=== PATIENT | male | born 1955 | race Caucasian/White ===

== ENCOUNTER 2018-04-15 17:33 | Emergency (ER) | payer OTHER, SELFPAY ==
[2018-04-15] VITALS (12 sets, daily range): BP systolic 117–163; BP diastolic 76–96; PULSE 44–111; RESP 12–27; TEMP 36.2; O2SAT 98–100; BMI 27.3
--- NOTE | 2018-04-15 17:47 | DI.RAD.S_ITS ---
PROCEDURE: XR CHEST 1V INDICATIONS: palpitations TECHNIQUE: One view of the chest was acquired. COMPARISON: None. FINDINGS: Surgical changes and devices: None. Lungs and pleura: No pleural effusions or pneumothorax. Lungs are clear. Mediastinum: Mediastinal contours appear normal. Heart size is normal. Bones and chest wall: No suspicious bony lesions. Overlying soft tissues appear unremarkable. IMPRESSION: No acute cardiopulmonary findings. Dictated by: Kenia Prieto M.D. on 04/15/2018 at 18:44 Approved by: Kenia Prieto M.D. on 04/15/2018 at 18:44
[2018-04-15 17:57] LABS: Prothrombin Time 11.1 SECONDS (10.1-12.7)
[2018-04-15 18:00] LABS: PTT Partial Thromboplastin Tim 28 SECONDS (26.4-36.2)
[2018-04-15 18:02] LABS: Alanine Aminotransferase 33 IU/L (21-72); Albumin 5.2 g/dL (3.5-5.0); Albumin Globulin Ratio 1.6 (1.0-2.8); Alkaline Phosphatase 45 U/L (38-126); Aspartate Aminotransferase 50 IU/L (17-59); Bilirubin Total 0.7 mg/dL (0.2-1.3); Calcium 10.3 mg/dL (8.4-10.2); Estimated Glomerular Filt Rate > 60.0 mL/min (>60); Globulin 3.3 g/dL (1.7-4.1); Glucose 89 mg/dL (80-110); Sodium 141 mmol/L (137-145); Total Protein 8.5 g/dL (6.3-8.2)
[2018-04-15 18:03] LABS: HEMOLYSIS 109 (0-50)
[2018-04-15] MEDS: SODIUM CHLORIDE 0.9% 1,000 ML 150 ML IV (18:15)
[2018-04-15 18:28] LABS: Add Manual Diff / Slide Review NO; Basophils Percent Auto 0.7 % (0-2); Eosinophils Percent Auto 1.4 % (2-4); Hematocrit 45.4 % (41-53); Hemoglobin 15.8 g/dL (13.5-17.5); Mean Corpuscular HGB Conc 34.8 % (30-36); Mean Corpuscular Hemoglobin 31.1 PG (26-34); Mean Corpuscular Volume 89.3 fL (80-100); Monocytes Percent Auto 10.7 % (3-14); Neutrophils Absolute Auto 6200 /uL (3000-5900); Neutrophils Percent Auto 61.2 % (50-75); Platelet Count 219 X10^3/uL (150-400); Red Blood Cell Count 5.09 X10^6/uL (4.5-5.9); Red Cell Distribution Width 14.7 % (11.6-14.8); White Blood Cell Count 10.1 X10^3/uL (4.5-11.0)
[2018-04-15 18:36] LABS: Creatine Kinase 180 U/L (55-170); Magnesium 2.1 mg/dL (1.6-2.3)
[2018-04-15 18:48] LABS: Troponin I 0.013 ng/mL (0.01-0.034)
[2018-04-15 19:08] LABS: Calcium 9.9 mg/dL (8.4-10.2); Estimated Glomerular Filt Rate > 60.0 mL/min (>60); Glucose 92 mg/dL (80-110); HEMOLYSIS < 15 (0-50); Potassium 4.5 mmol/L (3.4-5.1); Sodium 142 mmol/L (137-145)
[2018-04-15] MEDS: APIXABAN 5 MG TABLET PO (19:44)
--- NOTE | 2018-04-15 20:49 | PC.NURSE ---
30mg etomidate titrated for effect by Gonsalo Dunn DO.
[2018-04-15] MEDS: ETOMIDATE 2 MG/ML VIAL 30 MG IV (21:06)
--- NOTE | 2018-04-15 21:09 | RT ---
CALLED TO CONSCIOUS SEDATION. PT PLACED ON 2 LPM N/C W/ CO2 AND SPO2 MONITORING, BOTH REMAINING WITHIN NORMAL LIMITS DURING ENTIRE PROCEDURE. PT DID NOT REQUIRE BAG/MASK VENTILATION. PT LEFT IN CARE OF RN ONCE FULLY AWAKE.
--- NOTE | 2018-04-15 21:23 | ED_ITS ---
HPI - Arrhythmia/Palpitations General Chief Complaint: Arrhythmia/Palpitations Stated Complaint: Afib Time Seen by Provider: 04/15/18 17:47 History of Present Illness HPI narrative: HPI 62-year-old male with a history of pAfib (on daily diltiazem maintain a sinus rhythm, no anticoagulation) presents in atrial fibrillation for evaluation of 3 and half hours of palpitations and lightheadedness. * Medications: denies recent medication changes. * Caffeine: denies any change in baseline caffeine use. * Alcohol: denies preceding significant alcohol use. * Drugs: denies stimulant use. * ARMIN: notes a history of snoring and suspected obstructive sleep apnea. * Sound Editor: Dr. Nora Ferreira, M/S/F/SocHx notable for: polymyalgia rheumatica; remainder reviewed with patient and in chart. ROS: Negative constitutional, eye, cardiovascular, pulmonary, GI, , MSK, skin , neurologic, psychiatric, endocrine unless noted in the HPI. Exam Gen: Pleasant, non-toxic appearing, resting comfortably. HEENT: NC, AT, PEERL, EOMI. Resp: Clear to auscultation bilaterally, normal work of breathing, no accessory muscle usage. Card: Irregularly irregular rate with no murmurs, rubs, or gallops, extremities warm and well perfused. GI: Non-tender to palpation throughout all quadrants, no focal tenderness at McBurney's point, negative Chong's sign, non-distended, no rebound or guarding. : No suprapubic tenderness to palpation.No CVA tenderness to percussion bilaterally.Deferred MSK: No visible deformities, strength and tone without visually appreciable deficit. Skin: Normal color with no visible lesions. Neuro: AO x 3, no facial asymmetry, vision and hearing WNL. Psych: Mood and affect appropriate. Labs / Imaging: EKG (5:13 PM): AFib with a ventricular rate of 143 bpm, nonspecific ST segment changes.. EKG (5:35 PM: AFib with a ventricular rate of 90 bpm, no new ST segment changes , new LBBB, or T-wave changes that would suggest acute ischemia. CXR: No acute cardiopulmonary disease process. WBC 10.1, HB 15.8, PT/INR 1.0, APTT 28, sodium 141, potassium (hemolyzed), creatinine 1.00 mg/dL magnesium 2.1, troponin 0.013, TSH 5.20 Potassium (repeat) 4.5 EKG (8:44 PM): SR 48 bpm, no new ST segment changes, new LBBB, or T-wave changes that would suggest acute ischemia. MDM Previous chart, nursing note, labs, imaging, and vitals reviewed. A: 62-year-old male with a history of pAfib (on daily diltiazem maintain a sinus rhythm, no anticoagulation) presents in atrial fibrillation for evaluation of 3 and half hours of palpitations and lightheadedness. DDx & Evaluation: * Rate Control: 1) patient medicated with diltiazem by EMS. Achieved moderate rate control and hemodynamic stability, remained in A. fib. 2) After extensive discussion with the patient regarding options a care (rate versus rhythm control ) patient elected to pursue rhythm control via electrical cardioversion. This was performed as documented below. * Etiology * ARMIN - Given the patient's risk factors suspect ARMIN may be contributing to today's presentation. * Idiopathic/age - suspect strong idiopathic contribution given the relative exclusion of alternate etiologies, further evaluation deferred to the patient's primary physician. * Anemia - H&H within normal limits. * Infection - history, exam, and chest x-ray without evidence of clinically appreciable active infectious process. * Cardiac (myocarditis/pericarditis/ACS/heart failure) - doubt myocarditis and pericarditis given the absence of characteristic changes in the patient's repeat ECG as well as the lack of significant troponin elevation, similarly doubt ACS given the absence of ischemia and are negative troponin. Doubt heart failure given the lack of edema on imaging and exam as well as a negative history. 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 * PE - doubt PE given the absence of chest pain, prior DVT or PE, or other identifiable risk factors; as dyspnea in the setting of new onset A. fib is not an independent predictor further evaluation is not presently indicated. * Drugs - history without evidence for recent alcohol, caffeine, or other stimulant use that may have triggered today's presenting episode. * Anticoagulation - CHADS-VASc 1 (Age - 1, Gender - 0, CHF - 0, HTN - 0, Stroke/ TIA/Thromboembolism - 0, Vascular Disease - 0, DM - 0); patient is low to moderate risk with antiplatelet versus anticoagulation, discussion was had regarding treatment options, patient preferred to pursue anticoagulation giving stroke risk and prior tolerance of a NOAC. Disposition: discharged on Apixiban and instructed to continue prior diltiazem, patient to follow up with his railroad car painter. Impression: Atrial fibrillation (please reference below for remainder of encounter information) After discussion with the patient regarding anticoagulation options for their atrial fibrillation including risks and benefits of different treatment options Apixiban was chosen for anticoagulation. [As the patient weighs > 60 kg, has a Cr < 1.5 mg/dL, and a is not taking any strong CY inducers (Carbamazepine, Enzalutamide, Fosphenytoin, Lumacaftor, Mitotane, Phenobarbital, Phenytoin, Primidone, Rifabutin, Rifampin, or Rifapentine - per patient and chart), the were prescribed 5 mg BID for stroke prophylaxis for their atrial fibrillation. Critical Care Time Organ system(s): Cardiovascular. Intervention: Assessment of the patient, interpretation of studies, and communication with the patient. Time: 30 minutes were spent directly related to patient care exclusive of separately billed procedures. SEDATION Pre-Procedure: Consent: Written. Risks and benefits including adverse drug reaction, pain, nausea, vomiting, the need for respiratory support, and in extremely rare instances organ damage and , were reviewed with the patient, the patient understood and consented to sedation. ASA: 2, Mallampati 1 , 4 hours NPO. Y ? Patient (name and ID) and procedure. Y ? airway cart Y ? BVM Y ? Suction Y ? capnography, SaO2, HR, BP functioning and within acceptable limits. Patient on supplemental oxygen via a nasal cannula. Y ? review potential complications and management plans. Procedure The patient was given a total of 30 mg of Etomidate with moderate to deep sedation achieved (please refer to the MAR for timing doses, patient was given approximately 0.15 mg per kilogram with inadequate sedation as he continued to verbalize in a semi-purposeful manner, the remaining etomidate doses were titrated to moderate to deep sedation). There were no significant adverse events and the patient tolerated the procedure well. Total time: 15 minutes. Cardioversion Indication: Atrial Fibrillation. Consent: Written. Risks and benefits including post-procedural arrhythmias, pain , electrical rosa, and stroke were discussed with the patient. The patient understood and agreed to proceed with the procedure. After a time out in which the patient's identity was confirmed verbally and by their wrist band, synchronized cardioversion with anterior/posterior pads was performed at 120 J without conversion, the patient was then cardioverted at 200 J with conversion to sinus rhythm. There were no complications and the patient tolerated the procedure well. Post-Procedure I remained at the bedside until the patient was clearing sedation, vitals signs , airway and overall clinical condition were stable. RT and nursing remained present monitoring the patient per protocol through complete clearing of sedation and I was immediately available in the department throughout. Related Data Home Medications Medication Instructions Recorded Confirmed CA PANTOTHENATE/FOLIC ACID/VIT 1 tab PO QDAY #0 02/03/13 (MULTIVITAMIN) Fish Oil (FISH OIL~) 1,200 mg PO QDAY #0 02/03/13 [ALBUTERO] INH PRN #0 02/03/13 [VITAMIN D] 3,000 units PO QDAY #0 02/03/13 atorvastatin [Lipitor] 10 mg PO QDAY #0 02/03/13 Allergies Allergy/AdvReac Type Severity Reaction Status Date / Time Cephalosporins Allergy Verified 04/15/18 18:26 Iodinated Contrast- Oral and Allergy Verified 04/15/18 18:23 IV Dye Penicillins Allergy Verified 04/15/18 18:23 [facility] Social History Smoking Status: Never smoker Exam Initial Vital Signs Initial Vital Signs: Vital Signs Temperature 97.2 F L 04/15/18 18:04 Pulse Rate 99 H 04/15/18 18:04 Respiratory Rate 14 04/15/18 18:04 Blood Pressure 125/77 H 04/15/18 18:04 Pulse Oximetry 98 04/15/18 18:04 Course Orders Ordered: ED Orders 04/15/18 17:30 Complete Blood Count AUTO DIFF Stat Comprehensive Metabolic Panel Stat Magnesium Stat Partial Thromboplastin Time Stat Prothrombin Time INR Stat Thyroid Stimulating Hormone Stat Troponin with CK Cardiac Panel Stat 04/15/18 17:47 XR chest 1V Stat EKG-12 Lead Stat 04/15/18 18:45 Basic Metabolic Panel Stat Sodium Chloride (Normal Saline 0.9%) 1,000 mls @ 150 mls/hr IV CONT SUSHIL Last Admin: 04/15/18 18:15 Dose: 150 mls/hr Discontinued Medications Apixaban (Eliquis) 5 mg PO NOW ONE Stop: 04/15/18 18:47 Last Admin: 04/15/18 19:44 Dose: 5 mg Etomidate (Amidate) 30 mg IV NOW ONE Stop: 04/15/18 21:06 Last Admin: 04/15/18 21:06 Dose: 30 mg Vital Signs - 8 hr 04/15/18 18:04 04/15/18 20:30 04/15/18 20:31 Temperature 97.2 F L Pulse Rate 99 H 111 H Respiratory Rate 14 18 15 Blood Pressure 125/77 H Blood Pressure [Left Arm] 133/96 H Pulse Oximetry 98 100 04/15/18 20:42 04/15/18 20:46 04/15/18 20:50 Temperature Pulse Rate 45 L 58 L 46 L Respiratory Rate 12 16 27 H Blood Pressure Blood Pressure [Left Arm] 163/89 H 157/82 H 140/84 H Pulse Oximetry 100 100 04/15/18 20:55 04/15/18 21:03 04/15/18 21:07 Temperature Pulse Rate 44 L 44 L 47 L Respiratory Rate 15 15 15 Blood Pressure Blood Pressure [Left Arm] 128/84 H 132/82 H 118/76 Pulse Oximetry 100 100 100 04/15/18 21:12 Temperature Pulse Rate 44 L Respiratory Rate 12 Blood Pressure Blood Pressure [Left Arm] 132/92 H Pulse Oximetry 100 MDM - Arrhythmia/Palpitations Lab Data Result diagrams: 04/15/18 17:30 04/15/18 18:45 Lab Results 04/15/18 04/15/18 04/15/18 Range/Units 17:30 17:30 17:30 WBC 10.1 (4.5-11.0) X10^3/uL RBC 5.09 (4.5-5.9) X10^6/uL Hgb 15.8 (13.5-17.5) g/dL Hct 45.4 (41-53) % MCV 89.3 (80-100) fL MCH 31.1 (26-34) PG MCHC 34.8 (30-36) % RDW 14.7 (11.6-14.8) % Plt Count 219 (150-400) X10^3/uL Neut % (Auto) 61.2 (50-75) % Lymph % (Auto) 26.0 (25-40) % [place] % (Auto) 10.7 (3-14) % Eos % (Auto) 1.4 L (2-4) % Baso % (Auto) 0.7 (0-2) % Neut # (Auto) 6200 H (5568-2959) /uL PT 11.1 (10.1-12.7) SECONDS INR 1.0 (0.9-1.3) APTT 28 (26.4-36.2) SECONDS Sodium 141 (137-145) mmol/L Potassium TNP Chloride 103.0 (98-107) mmol/L Carbon Dioxide 21.0 L (22-32) mmol/L BUN 20.0 (9-20) mg/dL Creatinine 1.00 (0.66-1.25) mg/dL Estimated GFR > 60.0 (>60) mL/min BUN/Creatinine Ratio 20.0 (6-22) Glucose 89 (80-110) mg/dL Calcium 10.3 H (8.4-10.2) mg/dL Magnesium Total Bilirubin 0.7 (0.2-1.3) mg/dL AST 50 (17-59) IU/L ALT 33 (21-72) IU/L Alkaline Phosphatase 45 (38-126) U/L Total Creatine Kinase (55-170) U/L CK-MB (CK-2) (<2.37) ng/mL CK-MB (CK-2) Rel Index (1.5-5.0) % Troponin I (0.01-0.034) ng/mL Total Protein 8.5 H (6.3-8.2) g/dL Albumin 5.2 H (3.5-5.0) g/dL Globulin 3.3 (1.7-4.1) g/dL Albumin/Globulin Ratio 1.6 (1.0-2.8) TSH 04/15/18 04/15/18 04/15/18 Range/Units 17:30 17:30 17:30 WBC (4.5-11.0) X10^3/uL RBC (4.5-5.9) X10^6/uL Hgb (13.5-17.5) g/dL Hct (41-53) % MCV (80-100) fL MCH (26-34) PG MCHC (30-36) % RDW (11.6-14.8) % Plt Count (150-400) X10^3/uL Neut % (Auto) (50-75) % Lymph % (Auto) (25-40) % [place] % (Auto) (3-14) % Eos % (Auto) (2-4) % Baso % (Auto) (0-2) % Neut # (Auto) (0802-6560) /uL PT (10.1-12.7) SECONDS INR (0.9-1.3) APTT (26.4-36.2) SECONDS Sodium (137-145) mmol/L Potassium Chloride (98-107) mmol/L Carbon Dioxide (22-32) mmol/L BUN (9-20) mg/dL Creatinine (0.66-1.25) mg/dL Estimated GFR (>60) mL/min BUN/Creatinine Ratio (6-22) Glucose (80-110) mg/dL Calcium (8.4-10.2) mg/dL Magnesium Cancelled 2.1 Total Bilirubin (0.2-1.3) mg/dL AST (17-59) IU/L ALT (21-72) IU/L Alkaline Phosphatase (38-126) U/L Total Creatine Kinase 180 H (55-170) U/L CK-MB (CK-2) 3.60 H (<2.37) ng/mL CK-MB (CK-2) Rel Index 2.0 (1.5-5.0) % Troponin I 0.013 (0.01-0.034) ng/mL Total Protein (6.3-8.2) g/dL Albumin (3.5-5.0) g/dL Globulin (1.7-4.1) g/dL Albumin/Globulin Ratio (1.0-2.8) TSH Cancelled 04/15/18 04/15/18 Range/Units 17:30 18:45 WBC (4.5-11.0) X10^3/uL RBC (4.5-5.9) X10^6/uL Hgb (13.5-17.5) g/dL Hct (41-53) % MCV (80-100) fL MCH (26-34) PG MCHC (30-36) % RDW (11.6-14.8) % Plt Count (150-400) X10^3/uL Neut % (Auto) (50-75) % Lymph % (Auto) (25-40) % [place] % (Auto) (3-14) % Eos % (Auto) (2-4) % Baso % (Auto) (0-2) % Neut # (Auto) (2399-5294) /uL PT (10.1-12.7) SECONDS INR (0.9-1.3) APTT (26.4-36.2) SECONDS Sodium 142 (137-145) mmol/L Potassium 4.5 Chloride 104.0 (98-107) mmol/L Carbon Dioxide 27.0 (22-32) mmol/L BUN 19.0 (9-20) mg/dL Creatinine 1.00 (0.66-1.25) mg/dL Estimated GFR > 60.0 (>60) mL/min BUN/Creatinine Ratio 19.0 (6-22) Glucose 92 (80-110) mg/dL Calcium 9.9 (8.4-10.2) mg/dL Magnesium Total Bilirubin (0.2-1.3) mg/dL AST (17-59) IU/L ALT (21-72) IU/L Alkaline Phosphatase (38-126) U/L Total Creatine Kinase (55-170) U/L CK-MB (CK-2) (<2.37) ng/mL CK-MB (CK-2) Rel Index (1.5-5.0) % Troponin I (0.01-0.034) ng/mL Total Protein (6.3-8.2) g/dL Albumin (3.5-5.0) g/dL Globulin (1.7-4.1) g/dL Albumin/Globulin Ratio (1.0-2.8) TSH 5.20 H Discharge Plan Departure Interventions: ED Discharge Assessment Last Done: 04/15/18 21:11 Prescriptions: No Action atorvastatin [Lipitor] 10 MG tablet 10 mg PO QDAY Qty: 0 RF: 0 [ALBUTERO] INH PRN Qty: 0 RF: 0 CA PANTOTHENATE/FOLIC ACID/VIT (MULTIVITAMIN) 1 tab PO QDAY Qty: 0 RF: 0 [VITAMIN D] 3,000 units PO QDAY Qty: 0 RF: 0 Fish Oil (FISH OIL~) 1,200 mg PO QDAY Qty: 0 RF: 0
--- NOTE | 2018-04-15 22:05 | PC.NURSE ---
1830: provider ok for saline to go in as a bolus over an hour.
== END 2018-04-15 22:11 | disposition home or self-care (01) ==
PROVIDERS: Emergency Medicine; Emergency Provider Emergency Medicine; Family Provider Registered Nurse Diabetes Educator; PCP Registered Nurse Diabetes Educator
DX: I48.91 Unspecified atrial fibrillation (principal)
CPT/HCPCS: 36415; 71045; 80048; 80053; 82550; 82553; 83735; 84443; 84484; 85025; 85610; 85730; 92960; 93005; 93041; 94770; 96361; 96374; 99149; 99152; 99285; 99291; 99292

== ENCOUNTER 2019-04-03 10:52 | Emergency (ER) | payer OTHER, SELFPAY ==
[2019-04-03] VITALS (19 sets, daily range): BP systolic 103–144; BP diastolic 60–101; PULSE 52–139; RESP 10–18; TEMP 36.6; O2SAT 92–100; BMI 26.8
--- NOTE | 2019-04-03 11:12 | ED.ARRPALP ---
HPI - Arrhythmia/Palpitations General Chief Complaint: Arrhythmia/Palpitations Stated Complaint: AFB Time Seen by Provider: 04/03/19 11:11 Source: patient Mode of arrival: ambulatory Limitations: no limitations History of Present Illness HPI narrative: Patient is a 63-year-old male. Known history of atrial fibrillation. He is currently taking diltiazem and lisinopril and Eliquis. Has had an ablation in the past. Has had cardioversions 2 different times in the emergency department in the past. Reports the emergency department today after 2 hours of symptoms that are consistent with his history of atrial fibrillation. Has some shortness of breath but no chest pain. he states that he has been taking his Eliquis on a daily basis. Related Data Home Medications Medication Instructions Recorded Confirmed Fish Oil 1,200 mg PO QPM #0 02/03/13 04/03/19 albuterol sulfate 1 puff INHALATION PRN #0 02/03/13 04/03/19 atorvastatin [Lipitor] 10 mg PO QPM #0 02/03/13 04/03/19 cholecalciferol (vitamin D3) 3,000 units PO QPM #0 02/03/13 04/03/19 [Vitamin D3] multivitamin 1 tab PO QPM #0 02/03/13 04/03/19 apixaban [Eliquis] 5 mg PO BID 04/03/19 04/03/19 aspirin 81 mg PO QPM 04/03/19 04/03/19 diltiazem HCl 120 mg PO QPM 04/03/19 04/03/19 fluticasone propionate 1 spray INTRANASAL QPM 04/03/19 04/03/19 lisinopril 10 mg PO QPM 04/03/19 04/03/19 valacyclovir 500 mg PO QPM 04/03/19 04/03/19 Allergies Allergy/AdvReac Type Severity Reaction Status Date / Time Cephalosporins Allergy Verified 04/03/19 11:06 Iodinated Contrast- Oral and Allergy Verified 04/03/19 11:06 IV Dye Penicillins Allergy Verified 04/03/19 11:06 Review of Systems Constitutional Denies fever(s) Cardiovascular Denies chest pain, Reports rapid heart rate, Reports palpitations and Denies dyspnea Respiratory Denies cough, Denies pain with cough and Denies dyspnea Gastrointestinal Gastrointestinal: Denies abdominal pain, Denies nausea and Denies vomiting Musculoskeletal Denies myalgias and Denies arthralgias Integumentary/Breasts Denies rash Neurologic Denies behavioral changes Psychiatric Denies behavioral changes Endocrine Reports palpitations Hematologic/Lymphatic Comments: On Andre [facility] Medical History Atrial fibrillation (Acute) Social History Smoking Status: Unknown if ever smoked Social History Smoking Status: Unknown if ever smoked Exam Initial Vital Signs Initial Vital Signs: Vital Signs Pulse Rate 74 04/03/19 11:00 Respiratory Rate 18 04/03/19 11:00 Blood Pressure 144/98 H 04/03/19 11:00 Pulse Oximetry 98 04/03/19 11:00 Const General: cooperative, comfortable, well developed, well groomed and No acute distress Orientation: alert, awake and oriented x3 HENMT Head: normal to inspection and normocephalic Resp Effort & Inspection: normal respiratory effort Auscultation: clear to auscultation bilaterally Cardio Rate: tachycardic Rhythm: abnormal rhythm irregularly irregular Pulses: radial pulses present GI Inspection: non-distended Skin Lesions: no lesions Rashes: no rashes Neuro General: alert, awake and oriented x3 Cognition: normal cognition Speech: speech normal Gait: normal gait Extrem General: normal to inspection, capillary refill normal and No edema Psych Appearance: grossly normal and well kempt Procedures Cardioversion Consent Signed: Yes Indication: Atrial fibrillation Cardiac rhythm prior to cardioversion: Atrial fibrillation Stability: Stable Number of attempts (shocks): 1 Joules used: 120 Cardiac rhythm post-cardioversion: Sinus rhythm Procedural Sedation Patient Age: Patient is 5yrs or older Consent signed: Yes Time out performed: Yes Indication: cardioversion Presedation Evaluation: See note ASA Class: II Mallampati Airway Classification: Class I Preparation: cardiac rehab nurse applied, pulse oximeter, capnometry used and supplemental O2 applied Fentanyl: IV Fentanyl dose (mcg): 75 Midazolam: IV Midazolam dose (mg): 4 ED Sedation Level: Minimal Patient Tolerated Procedure: Well Complications: none Course Orders Ordered: ED Orders 04/03/19 11:15 Basic Metabolic Panel Stat Complete Blood Count AUTO DIFF Stat Partial Thromboplastin Time Stat Prothrombin Time INR Stat 05/06/19 11:29 EKG-12 Lead Stat RT Consult Eval and Treat Now 04/03/19 12:12 EKG-12 Lead Stat Discontinued Medications Fentanyl (Sublimaze) 75 mcg IV NOW ONE Stop: 04/03/19 12:13 Last Admin: 04/03/19 12:02 Dose: 75 mcg Sodium Chloride (Normal Saline 0.9%) 1,000 mls @ 1,000 mls/hr IV BOLUS ONE Stop: 04/03/19 12:27 Last Infusion: 04/03/19 13:12 Dose: 0 mls/hr Admin: 04/03/19 12:04 Dose: 1,000 mls/hr Midazolam HCl (Versed) 4 mg IV NOW ONE Stop: 04/03/19 12:13 Last Admin: 04/03/19 13:12 Dose: 4 mg Vital Signs - 8 hr 04/03/19 11:00 04/03/19 11:06 04/03/19 11:30 Temperature 97.8 F Pulse Rate 74 134 H 60 Respiratory Rate 18 13 16 Blood Pressure 144/98 H Blood Pressure [Right Arm] 144/98 H 114/96 H Pulse Oximetry 98 98 100 04/03/19 11:45 04/03/19 11:48 04/03/19 11:53 Temperature Pulse Rate 138 H 139 H Respiratory Rate 14 12 Blood Pressure Blood Pressure [Right Arm] 124/101 H 121/100 H Pulse Oximetry 92 97 97 04/03/19 12:00 04/03/19 12:11 04/03/19 12:14 Temperature Pulse Rate 69 58 L 57 L Respiratory Rate 12 11 L Blood Pressure Blood Pressure [Right Arm] 121/100 H 137/83 129/81 Pulse Oximetry 97 96 04/03/19 12:18 04/03/19 12:23 04/03/19 12:27 Temperature Pulse Rate 55 L 57 L 56 L Respiratory Rate 12 11 L 11 L Blood Pressure Blood Pressure [Right Arm] 119/83 120/76 113/75 Pulse Oximetry 97 97 97 04/03/19 12:34 04/03/19 12:37 04/03/19 12:42 Temperature Pulse Rate 56 L 55 L 55 L Respiratory Rate 12 14 12 Blood Pressure Blood Pressure [Right Arm] 110/71 110/72 116/71 Pulse Oximetry 97 98 04/03/19 12:56 04/03/19 13:00 04/03/19 13:30 Temperature Pulse Rate 53 L 53 L 52 L Respiratory Rate 12 14 10 L Blood Pressure Blood Pressure [Right Arm] 112/72 115/68 112/60 Pulse Oximetry 98 98 99 MDM - Arrhythmia/Palpitations Lab Data Attestation: I reviewed the patient's lab results. Result diagrams: 04/03/19 11:15 04/03/19 11:15 Lab Results 04/03/19 04/03/19 04/03/19 Range/Units 11:15 11:15 11:15 WBC 6.9 (4.5-11.0) X10^3/uL RBC 5.01 (4.5-5.9) X10^6/uL Hgb 16.2 (13.5-17.5) g/dL Hct 47.6 (41-53) % MCV 95.0 (80-100) fL MCH 32.3 (26-34) PG MCHC 34.0 (30-36) % RDW 13.8 (11.6-14.8) % Plt Count 226 (150-400) X10^3/uL Neut % (Auto) 58.0 (50-75) % Lymph % (Auto) 26.4 (25-40) % [place] % (Auto) 11.2 (3-14) % Eos % (Auto) 3.4 (2-4) % Baso % (Auto) 1.0 (0-2) % Neut # (Auto) 4000 (0812-1763) /uL Lymph # (Auto) 1800 (6189-6710) /uL [place] # (Auto) 800 (0-900) /uL Eos # (Auto) 200 (0-450) /uL Baso # (Auto) 100 (0-100) /uL PT 16.4 H (10.1-12.7) SECONDS INR 1.4 H (0.9-1.3) APTT 32 D (26.4-36.2) SECONDS Sodium 141 (137-145) mmol/L Potassium 4.1 (3.4-5.1) mmol/L Chloride 106 (98-107) mmol/L Carbon Dioxide 25 (22-32) mmol/L BUN 16 (9-20) mg/dL Creatinine 0.80 (0.66-1.25) mg/dL Estimated GFR > 60.0 (>60) mL/min BUN/Creatinine Ratio 20.0 (6-22) Glucose 91 (80-110) mg/dL Calcium 9.7 (8.4-10.2) mg/dL ECG Data Attestation: I personally reviewed and interpreted this ECG as follows: Prior ECG tracings: not available for review Interpretation: EKG upon arrival shows atrial fibrillation Ventricular rate of 133 Normal axis Normal QRS Normal QTC No ST T wave changes Post cardioversion EKG Sinus bradycardia Ventricular rate of 55 Left axis deviation Normal QRS Normal QTC Nonspecific ST T wave changes MDM Narrative Medical decision making narrative: Patient is stable upon arrival. Was in atrial fibrillation. Has been on Eliquis. Patient had the consent signed. Was sedated with fentanyl and Versed. Cardioverted with 120 joules 1 time shock to sinus rhythm. Patient did state that he remembered the event. Patient remained in sinus rhythm afterwards. He was instructed to continue taking his Eliquis and the rest of his medications. He will contact his rail technician. No indication to admit him to the hospital. Patient was given return precautions and follow-up instructions. He expressed understanding and agreement plan. Critical Care Time Critical Care Time: Yes Total Critical Care Time: 35 Attestation: The high probability of a clinically significant, sudden or life threatening deterioration of the cardiovascular system(s) required my full and direct attention, intervention and personal management. The aggregate critical care time was [35minutes. This time is in addition to time spent performing reported procedures but includes the following: [] Data Review and interpretation [] Patient assessment and monitoring of vital signs [] Documentation [] Medication orders and management Discharge Plan Departure Patient Disposition: Home Clinical Impression: Atrial fibrillation Qualifiers: Atrial fibrillation type: unspecified Qualified Code(s): I48.91 - Unspecified atrial fibrillation Discharge Date/Time: 04/03/19 14:01 Instructions: DI for Atrial Fibrillation Activity Restrictions/Additional Instructions: Continue to take all of your medications as directed. Contact your rail technician for a follow-up. Return to the emergency department for any new or worsening symptoms Prescriptions: No Action atorvastatin [Lipitor] 10 MG tablet 10 mg PO QPM Qty: 0 RF: 0 albuterol sulfate 90 mcg/actuation Hfa Aerosol Inhaler 1 puff Inhalation PRN Qty: 0 RF: 0 multivitamin Tablet 1 tab PO QPM Qty: 0 RF: 0 cholecalciferol (vitamin D3) [Vitamin D3] 2,000 unit Capsule 3,000 units PO QPM Qty: 0 RF: 0 Fish Oil 1,200 mg PO QPM Qty: 0 RF: 0 valacyclovir 500 mg tablet 500 mg PO QPM RF: 0 aspirin 81 mg tablet,delayed release (DR/EC) 81 mg PO QPM RF: 0 diltiazem HCl 120 mg capsule,extended release 24 hr 120 mg PO QPM RF: 0 lisinopril 10 mg tablet 10 mg PO QPM RF: 0 fluticasone propionate 50 mcg/actuation spray,suspension 1 spray Intranasal QPM RF: 0 Eliquis 5 mg tablet 5 mg PO BID RF: 0 Referrals: Vamshi Esparza CNP [Primary Care Provider] -
[2019-04-03 11:35] LABS: Add Manual Diff / Slide Review NO; Basophils Absolute Auto 100 /uL (0-100); Eosinophils Absolute Auto 200 /uL (0-450); Eosinophils Percent Auto 3.4 % (2-4); Hematocrit 47.6 % (41-53); Hemoglobin 16.2 g/dL (13.5-17.5); Lymphocytes Absolute Auto 1800 /uL (1100-4500); Lymphocytes Percent Auto 26.4 % (25-40); Mean Corpuscular Hemoglobin 32.3 PG (26-34); Monocytes Absolute Auto 800 /uL (0-900); Monocytes Percent Auto 11.2 % (3-14); Neutrophils Absolute Auto 4000 /uL (1500-7000); Platelet Count 226 X10^3/uL (150-400); Red Blood Cell Count 5.01 X10^6/uL (4.5-5.9); Red Cell Distribution Width 13.8 % (11.6-14.8); White Blood Cell Count 6.9 X10^3/uL (4.5-11.0)
[2019-04-03 11:36] LABS: INR 1.4 (0.9-1.3); Prothrombin Time 16.4 SECONDS (10.1-12.7)
[2019-04-03 11:39] LABS: PTT Partial Thromboplastin Tim 32 SECONDS (26.4-36.2)
[2019-04-03 11:44] LABS: Blood Urea Nitrogen 16 mg/dL (9-20); Calcium 9.7 mg/dL (8.4-10.2); Carbon Dioxide 25 mmol/L (22-32); Chloride 106 mmol/L (98-107); Estimated Glomerular Filt Rate > 60.0 mL/min (>60); Glucose 91 mg/dL (80-110); HEMOLYSIS < 15 (0-50); Potassium 4.1 mmol/L (3.4-5.1); Sodium 141 mmol/L (137-145)
[2019-04-03] MEDS: fentaNYL 100 MCG/2 ML INJ 75 MCG IV (12:02)
[2019-04-03] MEDS: SODIUM CHLORIDE 0.9% 1,000 ML 1000 ML IV (12:04)
[2019-04-03] MEDS: MIDAZOLAM 2 MG/2 ML VIAL 4 MG IV (13:12)
== END 2019-04-03 14:01 | disposition home or self-care (01) ==
PROVIDERS: Emergency Provider Emergency Medicine; Family Provider Registered Nurse Diabetes Educator; PCP Registered Nurse Diabetes Educator
DX: I48.91 Unspecified atrial fibrillation (principal); R06.02 Shortness of breath; Z79.01 Long term (current) use of anticoagulants
CPT/HCPCS: 36591; 80048; 85025; 85610; 85730; 92960; 93005; 93041; 94770; 99152; 99153; 99285; 99291; J2250; J3010

== ENCOUNTER 2019-07-17 08:06 | Emergency (ER) | payer OTHER, SELFPAY ==
[2019-07-17] VITALS (11 sets, daily range): BP systolic 108–157; BP diastolic 46–110; PULSE 43–118; RESP 8–18; TEMP 36.3–36.9; O2SAT 98–100; BMI 26.8
--- NOTE | 2019-07-17 08:22 | DI.RAD.S_ITS ---
PROCEDURE: XR CHEST 1V INDICATIONS: chest pain TECHNIQUE: One view of the chest was acquired. COMPARISON: [facility], CR, XR CHEST 1V, 04/15/2018, 18:00. FINDINGS: Surgical changes and devices: None. Lungs and pleura: Lungs are clear. No pleural effusions or pneumothorax. Mediastinum: Mediastinal contours appear normal. Heart size is normal. Bones and chest wall: No suspicious bony lesions. Overlying soft tissues appear unremarkable. IMPRESSION: No acute process. Dictated by: Manish Krueger M.D. on 07/17/2019 at 8:38 Approved by: Manish Krueger M.D. on 07/17/2019 at 8:38
--- NOTE | 2019-07-17 08:32 | ED.ARRPALP ---
HPI - Arrhythmia/Palpitations General Chief Complaint: Arrhythmia/Palpitations Stated Complaint: afib Time Seen by Provider: 07/17/19 08:22 Source: patient Mode of arrival: ambulatory Limitations: no limitations History of Present Illness HPI narrative: The patient is a 63-year-old male who has a history of atrial fibrillation with ablation in September 2018 presenting with atrial fibrillation. His he noticed he went into it 2 hours ago. He takes Eliquis he has previously been cardioverted. He takes diltiazem daily he took his morning dose. MD complaint: rapid heart beat and heart racing Onset (ago): hour(s) Duration: constant Arrhythmia history: atrial fibrillation Related Data Home Medications Medication Instructions Recorded Confirmed Fish Oil 1 cap PO QPM #0 02/03/13 07/17/19 albuterol sulfate 1 puff INHALATION PRN #0 02/03/13 07/17/19 atorvastatin [Lipitor] 10 mg PO QPM #0 02/03/13 07/17/19 cholecalciferol (vitamin D3) 3,000 units PO QPM #0 02/03/13 07/17/19 [Vitamin D3] multivitamin 1 tab PO QPM #0 02/03/13 07/17/19 apixaban [Eliquis] 5 mg PO BID 04/03/19 07/17/19 aspirin 81 mg PO QPM 04/03/19 07/17/19 diltiazem HCl 120 mg PO QPM 04/03/19 07/17/19 fluticasone propionate 1 spray INTRANASAL QPM 04/03/19 07/17/19 lisinopril 10 mg PO QPM 04/03/19 07/17/19 valacyclovir 500 mg PO QPM 04/03/19 07/17/19 Super B Complex 1 tab PO QPM 07/17/19 07/17/19 vitamin E 1,000 unit PO QPM 07/17/19 07/17/19 Allergies Allergy/AdvReac Type Severity Reaction Status Date / Time Cephalosporins Allergy Verified 07/17/19 08:21 Iodinated Contrast- Oral and Allergy Verified 07/17/19 08:21 IV Dye Penicillins Allergy Verified 07/17/19 08:21 Review of Systems Review of Systems ROS Unobtainable: All systems reviewed & are unremarkable except as noted in HPI and below Constitutional Denies chills, Denies fever(s), Denies lethargy and Denies weakness Cardiovascular Reports as per HPI, Reports rapid heart rate, Reports irregular heart rhythm, Denies dyspnea and Denies dyspnea on exertion Respiratory Denies cough, Denies dyspnea, Denies dyspnea on exertion and Denies wheezing Gastrointestinal Gastrointestinal: Denies abdominal pain, Denies change in bowel habits, Denies diarrhea, Denies nausea and Denies vomiting Genitourinary Denies hematuria, Denies flank pain, Denies urinary incontinence and Denies urinary urgency Musculoskeletal Denies back pain, Denies muscle weakness, Denies numbness and Denies tingling Integumentary/Breasts Denies pruritus, Denies erythema, Denies rash and Denies wounds Neurologic Denies numbness, Denies tingling and Denies weakness Allergic/Immunologic Denies wheezing [facility] Medical History Atrial fibrillation (Acute) Surgical History History of radiofrequency ablation procedure for cardiac arrhythmia (Acute) Social History Smoking Status: Former smoker Social History Smoking Status: Former smoker Exam Initial Vital Signs Initial Vital Signs: Vital Signs Pulse Rate 118 H 07/17/19 08:18 Respiratory Rate 17 07/17/19 08:18 Blood Pressure 137/97 H 07/17/19 08:18 Pulse Oximetry 100 07/17/19 08:18 GENERAL: Well-appearing, well-nourished and in no acute distress. HEENT: Head atraumatic,EOMI, pupils reactive, face symmetric, moist mucous membranes CARDIOVASCULAR: Irregularly irregular RESPIRATORY: Breath sounds equal bilaterally, no wheezes rales or rhonchi. ABDOMEN: Soft, nontender. Normoactive bowel sounds all 4 quadrants. No guarding or rebound. EXTREMITIES: Normal range of motion, no clubbing or edema. Neurovascularly intact NEUROLOGICAL: Alert and oriented x4.Normal gait and speech. Cranial nerves II through XII grossly intact. SKIN: Warm, dry, no laceration, no petechiae, no rashes or lesions. Procedures Cardioversion Consent Signed: Yes Indication: atrial fibrillation Stability: Stable Number of attempts (shocks): 1 Joules used: 150 Cardiac rhythm post-cardioversion: sinus rhythm Procedural Sedation Patient Age: Patient is 5yrs or older Consent signed: Yes Time out performed: Yes Indication: cardioversion ASA Class: I Mallampati Airway Classification: Class I Preparation: cardiac exercise physiologist applied, pulse oximeter, capnometry used and supplemental O2 applied IV Etomidate dose (mg): 10 Intraservice time/total sedation time (min): 10 ED Sedation Level: Moderate (Concious) Patient Tolerated Procedure: Well Complications: none Course Orders Ordered: ED Orders 07/17/19 09:43 EKG-12 Lead Routine Discontinued Medications Diltiazem HCl (Cardizem) 10 mg IV NOW ONE Stop: 07/17/19 08:36 Last Admin: 07/17/19 08:47 Dose: 10 mg Etomidate (Amidate) 10 mg IV NOW ONE Stop: 07/17/19 09:08 Last Admin: 07/17/19 09:40 Dose: 10 mg Sodium Chloride (Normal Saline 0.9%) 1,000 mls @ 150 mls/hr IV CONT SUSHIL Last Infusion: 07/17/19 11:23 Dose: 150 mls/hr Admin: 07/17/19 08:46 Dose: 150 mls/hr Vital Signs - 8 hr 07/17/19 11:00 07/17/19 11:27 07/17/19 12:33 Temperature 98.4 F Pulse Rate 47 L 46 L 72 Respiratory Rate 14 18 18 Blood Pressure 119/46 L Blood Pressure [Left Arm] 108/76 Pulse Oximetry 98 98 98 MDM - Arrhythmia/Palpitations Medical Records Attestation: I reviewed the patient's medical records. Lab Data Attestation: I reviewed the patient's lab results. Result diagrams: 07/17/19 08:40 07/17/19 08:40 Lab Results 07/17/19 07/17/19 07/17/19 Range/Units 08:40 08:40 08:40 WBC 7.1 (4.5-11.0) X10^3/uL RBC 4.74 (4.5-5.9) X10^6/uL Hgb 15.7 (13.5-17.5) g/dL Hct 45.4 (41-53) % MCV 95.7 (80-100) fL MCH 33.0 (26-34) PG MCHC 34.5 (30-36) % RDW 13.6 (11.6-14.8) % Plt Count 219 (150-400) X10^3/uL Neut % (Auto) 63.2 (50-75) % Lymph % (Auto) 22.6 L (25-40) % [place] % (Auto) 10.6 (3-14) % Eos % (Auto) 3.0 (2-4) % Baso % (Auto) 0.6 (0-2) % Neut # (Auto) 4500 (3282-7234) /uL Lymph # (Auto) 1600 (5517-4924) /uL [place] # (Auto) 800 (0-900) /uL Eos # (Auto) 200 (0-450) /uL Baso # (Auto) 0 (0-100) /uL PT 15.8 H (10.1-12.7) SECONDS INR 1.4 H (0.9-1.3) APTT 34 D (26.4-36.2) SECONDS Sodium 140 (137-145) mmol/L Potassium 4.0 (3.4-5.1) mmol/L Chloride 105 (98-107) mmol/L Carbon Dioxide 27 (22-32) mmol/L BUN 21 H (9-20) mg/dL Creatinine 0.80 (0.66-1.25) mg/dL Estimated GFR > 60.0 (>60) mL/min BUN/Creatinine Ratio 26.3 H (6-22) Glucose 105 (80-110) mg/dL Calcium 9.6 (8.4-10.2) mg/dL Magnesium 2.0 (1.6-2.3) mg/dL Total Bilirubin 0.8 (0.2-1.3) mg/dL AST 30 (17-59) IU/L ALT 33 (21-72) IU/L Alkaline Phosphatase 49 (38-126) U/L Total Creatine Kinase 188 H (55-170) U/L CK-MB (CK-2) 4.26 H (<2.37) ng/mL CK-MB (CK-2) Rel Index 2.3 (1.5-5.0) % Troponin I < 0.012 (0.01-0.034) ng/mL Total Protein 7.5 (6.3-8.2) g/dL Albumin 4.6 (3.5-5.0) g/dL Globulin 2.9 (1.7-4.1) g/dL Albumin/Globulin Ratio 1.6 (1.0-2.8) ECG Data Attestation: I personally reviewed and interpreted this ECG as follows: Prior ECG tracings: available for review Interpretation: EKG 1. Atrial fibrillation weight [address] depression EKG 2. Dear interval [address] changes no T-wave inversions MDM Narrative Medical decision making narrative: Patient no complications with cardioversion. He remains in normal sinus rhythm. He is calling for a ride home I have explained to him that he cannot be discharged after procedure sedation to drive himself. I also recommended he follow up with his business education instructor this is his 2nd episode of AFib with RVR previously he had 1 in March 2019. Discharge Plan Departure Patient Disposition: Home Clinical Impression: Atrial fibrillation Qualifiers: Atrial fibrillation type: paroxysmal Qualified Code(s): I48.0 - Paroxysmal atrial fibrillation Discharge Date/Time: 07/17/19 12:33 Interventions: ED Discharge Assessment Last Done: 07/17/19 12:33 Instructions: DI for Atrial Fibrillation Activity Restrictions/Additional Instructions: *You have been diagnosed with atrial fibrillation *What to do: CC fever with your business education instructor about options *Continue to take medications as directed *Follow up with your primary care provider in 2-3 days *Return to ER if you should have heart palpitations dizziness lightheaded or any new, worsening or concerning symptoms Prescriptions: No Action atorvastatin [Lipitor] 10 MG tablet 10 mg PO QPM Qty: 0 RF: 0 albuterol sulfate 90 mcg/actuation Hfa Aerosol Inhaler 1 puff Inhalation PRN Qty: 0 RF: 0 multivitamin Tablet 1 tab PO QPM Qty: 0 RF: 0 cholecalciferol (vitamin D3) [Vitamin D3] 2,000 unit Capsule 3,000 units PO QPM Qty: 0 RF: 0 Fish Oil 1 cap PO QPM Qty: 0 RF: 0 valacyclovir 500 mg tablet 500 mg PO QPM RF: 0 aspirin 81 mg tablet,delayed release (DR/EC) 81 mg PO QPM RF: 0 diltiazem HCl 120 mg capsule,extended release 24 hr 120 mg PO QPM RF: 0 lisinopril 10 mg tablet 10 mg PO QPM RF: 0 fluticasone propionate 50 mcg/actuation spray,suspension 1 spray Intranasal QPM RF: 0 Eliquis 5 mg tablet 5 mg PO BID RF: 0 vitamin E 1,000 unit Capsule 1,000 unit PO QPM RF: 0 Super B Complex 1 tab PO QPM RF: 0 Referrals: Vamshi Esparza CNP [Primary Care Provider] -
[2019-07-17] MEDS: SODIUM CHLORIDE 0.9% 1,000 ML 150 ML IV (08:46)
[2019-07-17] MEDS: dilTIAZem 5 MG/ML SDV 10 MG IV (08:47)
[2019-07-17 08:50] LABS: Add Manual Diff / Slide Review NO; Basophils Absolute Auto 0 /uL (0-100); Basophils Percent Auto 0.6 % (0-2); Eosinophils Absolute Auto 200 /uL (0-450); Hematocrit 45.4 % (41-53); Hemoglobin 15.7 g/dL (13.5-17.5); Lymphocytes Absolute Auto 1600 /uL (1100-4500); Lymphocytes Percent Auto 22.6 % (25-40); Mean Corpuscular HGB Conc 34.5 % (30-36); Mean Corpuscular Volume 95.7 fL (80-100); Monocytes Absolute Auto 800 /uL (0-900); Monocytes Percent Auto 10.6 % (3-14); Neutrophils Absolute Auto 4500 /uL (1500-7000); Neutrophils Percent Auto 63.2 % (50-75); Platelet Count 219 X10^3/uL (150-400); Red Blood Cell Count 4.74 X10^6/uL (4.5-5.9); Red Cell Distribution Width 13.6 % (11.6-14.8); White Blood Cell Count 7.1 X10^3/uL (4.5-11.0)
[2019-07-17 08:55] LABS: HEMOLYSIS < 15 (0-50); INR 1.4 (0.9-1.3); Prothrombin Time 15.8 SECONDS (10.1-12.7)
[2019-07-17 08:57] LABS: PTT Partial Thromboplastin Tim 34 SECONDS (26.4-36.2)
[2019-07-17 08:59] LABS: Alanine Aminotransferase 33 IU/L (21-72); Albumin 4.6 g/dL (3.5-5.0); Albumin Globulin Ratio 1.6 (1.0-2.8); Alkaline Phosphatase 49 U/L (38-126); Aspartate Aminotransferase 30 IU/L (17-59); BUN Creatinine Ratio 26.3 (6-22); Bilirubin Total 0.8 mg/dL (0.2-1.3); Blood Urea Nitrogen 21 mg/dL (9-20); Calcium 9.6 mg/dL (8.4-10.2); Carbon Dioxide 27 mmol/L (22-32); Chloride 105 mmol/L (98-107); Creatine Kinase 188 U/L (55-170); Estimated Glomerular Filt Rate > 60.0 mL/min (>60); Globulin 2.9 g/dL (1.7-4.1); Glucose 105 mg/dL (80-110); Total Protein 7.5 g/dL (6.3-8.2)
[2019-07-17 09:02] LABS: Sodium 140 mmol/L (137-145)
[2019-07-17 09:10] LABS: Troponin I < 0.012 ng/mL (0.01-0.034)
[2019-07-17] MEDS: ETOMIDATE 2 MG/ML 10 ML VIAL 10 MG IV (09:40)
--- NOTE | 2019-07-17 11:24 | PC.NURSE ---
Steady gait; No c/o dizziness;
[2019-07-17 13:01] LABS: CKMB % Relative Index 2.3 % (1.5-5.0); Creatine Kinase MB 4.26 ng/mL (<2.37)
== END 2019-07-17 12:33 | disposition home or self-care (01) ==
PROVIDERS: Emergency Provider Emergency Medicine; Family Provider Registered Nurse Diabetes Educator; PCP Registered Nurse Diabetes Educator
DX: I48.0 Paroxysmal atrial fibrillation (principal)
CPT/HCPCS: 36591; 71045; 80053; 82550; 82553; 83735; 84484; 85025; 85610; 85730; 92960; 93005; 94770; 96361; 96374; 96375; 99152; 99285

== ENCOUNTER 2020-05-31 09:26 | Emergency (ER) | payer OTHER, SELFPAY ==
[2020-05-31] VITALS (41 sets, daily range): BP systolic 107–154; BP diastolic 62–105; PULSE 44–175; RESP 8–49; TEMP 37; O2SAT 96–100; BMI 26.5
--- NOTE | 2020-05-31 09:28 | DI.RAD.S_ITS ---
PROCEDURE: XR CHEST 1V INDICATIONS: chest pain TECHNIQUE: One view of the chest was acquired. COMPARISON: [facility], CR, XR CHEST 1V, 07/17/2019, 8:26. FINDINGS: Surgical changes and devices: None. Lungs and pleura: Lungs are clear. No pleural effusions or pneumothorax. Mediastinum: Mediastinal contours appear normal. Heart size is normal. Bones and chest wall: No suspicious bony lesions. Overlying soft tissues appear unremarkable. IMPRESSION: No acute cardiopulmonary process demonstrated radiographically. Dictated by: Marek Michelle M.D. on 05/31/2020 at 9:58 Approved by: Marek Michelle M.D. on 05/31/2020 at 10:01
[2020-05-31] MEDS: dilTIAZem 5 MG/ML SDV 20 MG IV ×2 (09:46→11:46)
[2020-05-31 09:48] LABS: Add Manual Diff / Slide Review NO; Basophils Absolute Auto 100 /uL (0-100); Basophils Percent Auto 0.6 % (0-2); Eosinophils Absolute Auto 0 /uL (0-450); Eosinophils Percent Auto 0.1 % (2-4); Hematocrit 44.6 % (41-53); Hemoglobin 15.4 g/dL (13.5-17.5); Lymphocytes Absolute Auto 1900 /uL (1100-4500); Mean Corpuscular HGB Conc 34.4 % (30-36); Mean Corpuscular Hemoglobin 32.8 PG (26-34); Mean Corpuscular Volume 95.1 fL (80-100); Monocytes Absolute Auto 900 /uL (0-900); Monocytes Percent Auto 6.7 % (3-14); Neutrophils Absolute Auto 10800 /uL (1500-7000); Neutrophils Percent Auto 78.6 % (50-75); Platelet Count 251 X10^3/uL (150-400); Red Blood Cell Count 4.69 X10^6/uL (4.5-5.9); Red Cell Distribution Width 14.1 % (11.6-14.8); White Blood Cell Count 13.7 X10^3/uL (4.5-11.0)
[2020-05-31 09:53] LABS: INR 1.2 (0.9-1.3); Prothrombin Time 13.6 SECONDS (10.1-12.7)
[2020-05-31 09:56] LABS: PTT Partial Thromboplastin Tim 28 SECONDS (26.4-36.2)
[2020-05-31 09:57] LABS: Alanine Aminotransferase 33 IU/L (<50); Albumin 5.2 g/dL (3.5-5.0); Albumin Globulin Ratio 1.9 (1.0-2.8); Alkaline Phosphatase 53 U/L (38-126); Aspartate Aminotransferase 35 IU/L (17-59); BUN Creatinine Ratio 23.2 (6-22); Bilirubin Total 0.6 mg/dL (0.2-1.3); Blood Urea Nitrogen 19 mg/dL (9-20); Calcium 10.4 mg/dL (8.4-10.2); Carbon Dioxide 26 mmol/L (22-32); Chloride 102 mmol/L (98-107); Estimated Glomerular Filt Rate > 60.0 mL/min (>60); Globulin 2.8 g/dL (1.7-4.1); Glucose 114 mg/dL (80-110); HEMOLYSIS < 15 (0-50); Lipase 228 U/L (23-300); Potassium 4.3 mmol/L (3.4-5.1); Sodium 137 mmol/L (137-145)
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
[2020-05-31 10:01] LABS: Creatine Kinase 111 U/L (55-170)
[2020-05-31 10:02] LABS: Magnesium 2.2 mg/dL (1.6-2.3)
[2020-05-31 10:09] LABS: Troponin I < 0.012 ng/mL (0.01-0.034)
[2020-05-31 10:13] LABS: CKMB % Relative Index 4.6 % (1.5-5.0); Creatine Kinase MB 5.13 ng/mL (<2.37)
[2020-05-31] MEDS: DILTIAZEM 125 MG/125 ML PIGGYBACK 10 MG IV (10:14)
[2020-05-31] MEDS: SODIUM CHLORIDE 0.9% 1,000 ML 1000 ML IV (10:15)
[2020-05-31] MEDS: propofoL 200 MG/20 ML VIAL 85 MG IV (13:58)
== END 2020-05-31 14:53 | disposition home or self-care (01) ==
PROVIDERS: Emergency Provider Emergency Medicine; Family Provider Registered Nurse Diabetes Educator; PCP Registered Nurse Diabetes Educator
DX: I48.91 Unspecified atrial fibrillation (principal); I10 Essential (primary) hypertension; Z79.01 Long term (current) use of anticoagulants; R00.2 Palpitations; R00.1 Bradycardia, unspecified
CPT/HCPCS: 36415; 71045; 80053; 81003; 82550; 82553; 83690; 83735; 84484; 85025; 85610; 85730; 92960; 93005; 94770; 96365; 96366; 96375; 96376; 99152; 99285; J2704